=== PATIENT | male | born 1950 | race Caucasian/White ===

== ENCOUNTER 2017-02-23 17:45 | Emergency (ER) | payer OTHER ==
[2017-02-23 17:51] VITALS: BP 151/95; PULSE 87; RESP 24; TEMP 98.7
--- NOTE | 2017-02-23 18:00 | ED ---
Medical Clearance HPI - General Chief complaint: Medical Clearance Stated complaint: Anxiety Time Seen by Provider: 02/23/17 17:54 Source: police, RN notes reviewed Mode of arrival: EMS - History of Present Illness Initial comments: Patient 66-year-old male presenting to the emergency room today [place] border [place] patient was found to have legal drugs on him. Patient was brought to the hospital because he had elevated blood pressure. Patient denies any complaints here in the emergency room. Patient denies any recent fever, chills, shortness of breath, chest pain, back pain, abdominal pain, nausea or vomiting, numbness or tingling, dysuria or hematuria, constipation or diarrhea, headaches or visual changes, or any other complaints. Home medications: Home Medications Medication Instructions Recorded Confirmed No Known Home Medications [No 02/23/17 02/23/17 Known Home Medications] Allergies/Adverse reactions: Allergies Allergy/AdvReac Type Severity Reaction Status Date / Time meperidine [From Demerol] Allergy Anaphylaxis Verified 02/23/17 17:51 Review of Systems ROS Statement: Those systems with pertinent positive or pertinent negative responses have been documented in the HPI. ROS Other: All systems not noted in ROS Statement are negative. Past Medical History History of Any Multi-Drug Resistant Organisms: None Reported Past Surgical History: Orthopedic Surgery Additional Past Surgical History / Comment(s): HAND Past Psychological History: PTSD Smoking Status: Never smoker Past Alcohol Use History: None Reported Past Drug Use History: Marijuana General Exam - General Exam Comments Initial Comments: General: The patient is awake and alert, in no distress, and does not appear acutely ill. Eye: Pupils are equal, round and reactive to light, extra-ocular movements are intact. No nystagmus. There is normal conjunctiva bilaterally. No signs of icterus. Ears, nose, mouth and throat: There are moist mucous membranes and no oral lesions. Neck: The neck is supple, there is no tenderness or JVD. Cardiovascular: There is a regular rate and rhythm. No murmur, rub or gallop is appreciated. Respiratory: Lungs are clear to auscultation, respirations are non-labored, breath sounds are equal. No wheezes, stridor, rales, or rhonchi. Gastrointestinal: Soft, non-distended, non-tender abdomen without masses or organomegaly noted. There is no rebound or guarding present. No CVA tenderness. Musculoskeletal: Normal ROM, no tenderness. Strength 5/5. Sensation intact. Pulses equal bilaterally 2+. Neurological: A&O x 3. CN II-XII intact, There are no obvious motor or sensory deficits. Coordination appears grossly intact. Speech is normal. Skin: Skin is warm and dry and no rashes or lesions are noted. Psychiatric: Cooperative, appropriate mood & affect, normal judgment. Limitations: no limitations Course Vital Signs 02/23/17 17:46 Temperature 98.7 F Pulse Rate 87 Respiratory 24 Rate Blood Pressure 151/95 O2 Sat by Pulse 96 Oximetry Medical Decision Making - Medical Decision Making Patient examined here in the emergency room shows no signs of distress. States he is upset because he was stopped and found to have sensation of illegal drugs. He is resting comfortably in the stretcher. He denies any pain. Denies any shortness breath. Denies any chest pain. Patient's vital stable. Patient was stopped [place] [employer] in found to have positional the drugs. Was brought in by [facility] officers due to having elevated blood pressure. Blood pressure is normal here in the emergency room. He'll be discharged into the custody of [facility]. Disposition Clinical Impression: Medical clearance for incarceration Disposition: HOME SELF-CARE Condition: Good Time of Disposition: 18:00
--- NOTE | 2017-02-23 18:05 | ED ---
Disposition Clinical Impression: Medical clearance for incarceration Disposition: HOME SELF-CARE Condition: Good Additional Instructions: Patient medically cleared to go into custody with Jacob [facility]anna Referrals: None,Stated [Primary Care Provider] - 1-2 days Time of Disposition: 18:05
== END 2017-02-23 18:10 | disposition home or self-care (01) ==
LOC: EC 17:45
DX: Z02.89 Encounter for other administrative examinations (principal); F41.9 Anxiety disorder, unspecified; R03.0 Elevated blood-pressure reading, without diagnosis of hypertension; Z88.5 Allergy status to narcotic agent
CPT/HCPCS: 99283